=== PATIENT | female | born 1980 | race Caucasian/White ===

== ENCOUNTER 2024-01-29 12:42 | Outpatient (CLI) | payer OTHER, SELFPAY | END 2024-01-29 12:43 | disposition home or self-care (01) | LOC: NFLDREF 02-21 14:01 | PROVIDERS: PCP Family Medicine; Referring Provider Family Medicine; Visit Provider Physician Assistant | DX: N30.01 Acute cystitis with hematuria (principal); N76.0 Acute vaginitis; B96.89 Other specified bacterial agents as the cause of diseases classified elsewhere; B96.20 Unspecified Escherichia coli [E. coli] as the cause of diseases classified elsewhere | CPT/HCPCS: 87086; 87186 ==

== ENCOUNTER 2024-02-10 14:27 | Outpatient (CLI) | payer OTHER, SELFPAY | END 2024-02-10 14:28 | disposition home or self-care (01) | LOC: LKVREF 14:28 | PROVIDERS: PCP Family Medicine; Visit Provider Family Medicine | DX: N39.0 Urinary tract infection, site not specified (principal) | CPT/HCPCS: 87086; 87186 ==

== ENCOUNTER 2024-02-28 22:24 | Outpatient (CLI) | payer OTHER, SELFPAY | END 2024-02-28 22:25 | disposition home or self-care (01) | LOC: AMB 03-04 11:08 | PROVIDERS: PCP Family Medicine; Visit Provider Internal Medicine | DX: R56.9 Unspecified convulsions (principal); T43.292A Poisoning by other antidepressants, intentional self-harm, initial encounter | CPT/HCPCS: A0425; A0427 ==

== ENCOUNTER 2024-04-07 15:33 | Outpatient (CLI) | payer OTHER, SELFPAY | END 2024-04-07 15:34 | disposition home or self-care (01) | LOC: NFLDREF 04-09 16:09 | PROVIDERS: PCP Family Medicine; Referring Provider Family Medicine; Visit Provider Physician Assistant | DX: R82.90 Unspecified abnormal findings in urine (principal); N89.8 Other specified noninflammatory disorders of vagina; N39.0 Urinary tract infection, site not specified; B37.31 Acute candidiasis of vulva and vagina | CPT/HCPCS: 87086; 87186 ==

== ENCOUNTER 2024-04-13 10:54 | Outpatient (CLI) | payer OTHER, SELFPAY ==
--- NOTE | 2024-04-13 11:00 | CRLHL7_ITS ---
For Patients: As a result of the Century Cures Act, medical imaging exams and procedure reports are released immediately into your electronic medical record. You may view this report before your referring provider. If you have questions, please contact your health care provider. INDICATION: ABNORMAL FINDINGS ON DIAGNOSTIC IMAGING OF SKULL COMPARISON: 03/03/2023 TECHNIQUE: A CT volumetric acquisition was performed of the brain without IV contrast. Please note that all CT scans at this facility use dose modulation, iterative reconstruction, and/or weight-based dosing when appropriate to reduce radiation dose to as low as reasonably achievable. FINDINGS: No hemorrhage or hydrocephalus. No midline shift. Mast-white differentiation maintained. Small mucous retention cyst within the right sphenoid sinus. Mild leftward curvature of the nasal septum. Paradoxical turn of the right middle turbinate. Stable 8 millimeter density associated with the interhemispheric fissure. IMPRESSION: No significant change. Stable 8 millimeter interhemispheric meningioma. No hemorrhage. Please note that all CT scans at this facility use dose modulation, iterative reconstruction, and/or weight-based dosing when appropriate to reduce radiation dose to as low as reasonably achievable. Dictated by Sanket Diallo MD @ 04/13/2024 2:06:12 PM (Electronically Signed)
== END 2024-04-13 10:55 | disposition home or self-care (01) ==
PROVIDERS: PCP Family Medicine; Visit Provider Family Medicine
DX: R93.0 Abnormal findings on diagnostic imaging of skull and head, not elsewhere classified (principal); D32.0 Benign neoplasm of cerebral meninges
CPT/HCPCS: 70450

== ENCOUNTER 2024-05-12 12:29 | Outpatient (CLI) | payer OTHER, SELFPAY | END 2024-05-12 12:30 | disposition home or self-care (01) | LOC: NFLDREF 05-13 10:59 | PROVIDERS: PCP Family Medicine; Referring Provider Family Medicine; Visit Provider Physician Assistant | DX: B37.31 Acute candidiasis of vulva and vagina (principal); N39.0 Urinary tract infection, site not specified | CPT/HCPCS: 87086; 87186 ==

== ENCOUNTER 2024-06-09 13:48 | Outpatient (CLI) | payer OTHER, SELFPAY | END 2024-06-09 13:49 | disposition home or self-care (01) | LOC: NFLDREF 06-11 12:30 | PROVIDERS: PCP Family Medicine; Referring Provider Family Medicine; Visit Provider Physician Assistant | DX: S90.129A Contusion of unspecified lesser toe(s) without damage to nail, initial encounter (principal); L03.90 Cellulitis, unspecified; B37.31 Acute candidiasis of vulva and vagina; S90.211A Contusion of right great toe with damage to nail, initial encounter | CPT/HCPCS: 87070; 87186 ==

== ENCOUNTER 2024-07-26 10:18 | Outpatient (CLI) | payer OTHER, SELFPAY ==
[2024-07-26 15:05] LABS: Chlamydia DNA Amplified* NOT DETECTED (No Detected); GC DNA Amplified* NOT DETECTED (No Detected)
== END 2024-07-26 10:19 | disposition home or self-care (01) ==
PROVIDERS: PCP Family Medicine
DX: N30.00 Acute cystitis without hematuria (principal); R39.89 Other symptoms and signs involving the genitourinary system; Z72.51 High risk heterosexual behavior; A59.01 Trichomonal vulvovaginitis
CPT/HCPCS: 86592; 86703; 86706; 86803; 87086; 87186; 87340; 87491; 87591

== ENCOUNTER 2024-08-14 12:49 | Outpatient (CLI) | payer OTHER, SELFPAY | END 2024-08-14 12:50 | disposition home or self-care (01) | LOC: NFLDREF 08-17 13:15 | PROVIDERS: PCP Family Medicine; Referring Provider Family Medicine; Visit Provider Physician Assistant | DX: N39.0 Urinary tract infection, site not specified (principal); B96.20 Unspecified Escherichia coli [E. coli] as the cause of diseases classified elsewhere | CPT/HCPCS: 87086; 87186 ==

== ENCOUNTER 2024-09-03 18:07 | Outpatient (CLI) | payer OTHER, SELFPAY | END 2024-09-03 18:08 | disposition home or self-care (01) | LOC: NFLDREF 09-06 07:14 | PROVIDERS: PCP Family Medicine; Referring Provider Family Medicine; Visit Provider Physician Assistant | DX: R35.0 Frequency of micturition (principal); N39.0 Urinary tract infection, site not specified; B37.31 Acute candidiasis of vulva and vagina; J32.9 Chronic sinusitis, unspecified | CPT/HCPCS: 87086; 87186 ==

== ENCOUNTER 2025-08-18 08:47 | Outpatient (CLI) | payer OTHER, SELFPAY | END 2025-08-18 08:48 | disposition home or self-care (01) | PROVIDERS: PCP Family Medicine; Visit Provider Podiatrist | DX: L60.0 Ingrowing nail (principal); B35.1 Tinea unguium | CPT/HCPCS: 84450; 84460 ==

== ENCOUNTER 2025-08-20 08:59 | Outpatient (CLI) | payer OTHER, SELFPAY ==
[2025-08-20 16:01] LABS: Chlamydia DNA Amplified* NOT DETECTED (No Detected); GC DNA Amplified* NOT DETECTED (No Detected)
== END 2025-08-20 09:00 | disposition home or self-care (01) ==
PROVIDERS: PCP Family Medicine
DX: Z72.51 High risk heterosexual behavior (principal); Z11.3 Encounter for screening for infections with a predominantly sexual mode of transmission
CPT/HCPCS: 86592; 86703; 87086; 87491; 87591